=== PATIENT | female | born 1960 | race Caucasian/White ===

== ENCOUNTER → 2021-10-20 | Outpatient (CLI) | payer OTHER, MEDICARE, SELFPAY ==
--- NOTE | 2021-10-20 07:59 | CT_ITS ---
INDICATION: RT CN PALSY/R/O OOT MASS EXAMINATION: CT BRAIN WITH AND WITHOUT CONTRAST - CT Head or Brain WO/W Contrast Injection TECHNIQUE: Multiple axial images were obtained of the brain with and without IV contrast. A radiation dose optimization technique was used for this scan. IV Contrast dosage and agent: 50 cc of ISOVUE-300 COMPARISON : None. Radiation DLP : 1978.5. Radiation CTDvol: 39.78. FINDINGS: BRAIN PARENCHYMA: No intra- or extra-axial hemorrhage. No evidence of acute infarct. No intracranial mass or mass effect. There is preservation of the vega/white matter interface. Posterior fossa structures are unremarkable. No abnormal contrast enhancement. CSF SPACES: Appropriate for age. No hydrocephalus. Basal cisterns are patent. CALVARIUM, SKULL BASE, PARANASAL SINUSES AND MASTOID AIR CELLS: Clear. No discrete lytic or blastic abnormalities. ORBITS: Both globes, extraocular muscles, optic nerves and retrobulbar fat appear unremarkable. ASPECTS Score for Acute Strokes: 10 CT/Brain/Head W/WO Contrast IMPRESSION: Negative CT Brain with and without contrast. Electronically Signed: Nakul Causey MD at 8:41 EDT Reading Location ID and State: [facility] / [place] Tel , Service support ,
--- NOTE | 2021-10-20 07:59 | CT_ITS ---
EXAM: CT Orbits With Intravenous Contrast CLINICAL INDICATION: 61 years old, Female; RT CN PALSY/R/O OOT MASS TECHNIQUE: Helically acquired images were obtained of the orbits. Multiplanar reformations were reviewed. Study was performed with intravenous contrast. This CT exam was performed using one or more of the following dose reduction techniques: automated exposure control, adjustment of the mA and/or kV according to patient size, and/or use of iterative reconstruction technique. This report was created using [employer] report [employer] technology. CONTRAST: 50 CC ISOVUE 300 RADIATION DOSE: CTDIvol = 39.78 mGy, DLP = 1978.52 mGy-cm COMPARISON: Head CT dated 10/20/2021. FINDINGS: Orbits: Postop changes left globe. Extraocular muscles are normal. Retrobulbar fat appears unremarkable. Sinuses: Unremarkable. Clear. Bones/joints: No acute fracture. Soft tissues: Unremarkable. No focal subcutaneous swelling. No discrete fluid collections. CT/Orb Sella Post Fossa Ear W/CON IMPRESSION: No acute findings in the orbits. Electronically Signed: Jossue Zeng MD at 5:36 EDT ,
[2021-10-20 08:10] LABS: CREATININE FINGERSTICK 0.6 mg/dL (0.55-1.02); EGFR FINGERSTICK > 60.0000 mL/min (>60)
== END | disposition home or self-care (01) ==
LOC: CT 07:54
PROVIDERS: Referring Provider Ophthalmology; Visit Provider Ophthalmology
DX: Z01.812 Encounter for preprocedural laboratory examination (principal); H49.21 Sixth [abducent] nerve palsy, right eye
CPT/HCPCS: 70470; 70481; Q9967

== ENCOUNTER → 2023-05-20 | Outpatient (CLI) | payer MEDICARE, SELFPAY ==
[2023-05-20 12:39] LABS: Microalbumin,Random Urine 38.7 mg/L (NO RANGE EST.); Microalbumin:Creatinine Ratio 20.5 mg/g CRE (<30 mg/g CRE)
[2023-05-20 12:53] LABS: ALB/GLOB Ratio 0.9 RATIO (0.9-2.4); AST(SGOT) 15 U/L (15-37); Alanine Aminotransfer ALT/SGPT 27 U/L (13-56); Albumin, Serum 3.7 g/dL (3.2-5.0); Alkaline Phosphatase 89 U/L (45-117); Anion Gap 5 (5-15); BUN 10 mg/dL (7-18); BUN/Creat Ratio 13.3 RATIO (10-20); Calcium,Total 8.8 mg/dL (8.5-10.1); Chloride 103 mmol/L (98-107); Cholesterol 123 mg/dL (200); Creatinine, Serum 0.75 mg/dL (0.55-1.02); EST Glomerular Filtration Rate 83 mL/min (>60); Est Glom Filt Rate - Afr Amer 100 mL/min (>60); Globulin 4.2 g/dL (2.2-4.2); Glucose 301 mg/dL (74-106); High Density Lipoprotein 48 mg/dL; Potassium 4.1 mmol/L (3.5-5.1); Protein, Total 7.9 g/dL (6.4-8.2); Sodium Level 138 mmol/L (136-145); Thyroid Stim Hormone (TSH) 1.11 uIU/mL (0.358-3.74); Triglycerides 106 mg/dL; Very Low Density Lipoprotein 21 mg/dL (5-40)
== END | disposition home or self-care (01) ==
LOC: LAB 11:48
PROVIDERS: PCP Nurse Practitioner Family; Referring Provider Nurse Practitioner Family; Visit Provider Nurse Practitioner Family
DX: E66.09 Other obesity due to excess calories (principal); E11.9 Type 2 diabetes mellitus without complications; Z68.33 Body mass index [BMI] 33.0-33.9, adult; I10 Essential (primary) hypertension
CPT/HCPCS: 36415; 80053; 80061; 82043; 82570; 84443

== ENCOUNTER 2025-04-29 15:30 | Outpatient (RCR) | payer MEDICARE, SELFPAY ==
--- NOTE | 2025-03-08 09:48 | HP.OTEVAL_ITS ---
Patient's Visit Information Visit Information Visit Information: KATY CASTILLO is a 64 year old F, referred to Occupational Therapy by Dr. Eddi Mason MD, with a diagnosis of left ulna fx. Date of Evaluation: 03/08/25 Occupational Therapist: Maeve Smith, GUIDOR/Ines, CHT Subjective Subjective: This 64 year old female was seen for OT eval with dx of a left ulna fx. pt states she had a fall on December 17 2024. Pt states she went to the ER. Pt states they splinted her wrist and sent her to Dr. Mason at [facility]. Pt states she was not casted and kept her the splint for 6 weeks. pt states she was told she could get out of that and was given a left wrist cock- up brace about 6 weeks ago. pt states she saw him about a week ago and she was told she needed therapy. pt states her wrist is not good- pt states she is in a wrist brace when her grandchildren are around. pt is right handed pt states she has increase difficulty with all ADLS and IADLs. pt feels pain- weakness and limited ROM stops her from doing what she wants to do. Pain left wrist: Current Pain Intensity: 5 Pain Intensity Range: 7 and 8 ROM Forearm: right WNL left supination is at N Wrist: right 65/65 left 30/15 with pain Strength Microsoft Crm Developer: right 55# left 15# Lateral Pinch: right 12# left unable Tripod Pinch: right 8# left unable Sensation Sensation Comments: denies Quick DASH-Disab of Arm,Shoulder& Hand Quick DASH Score: 55.0000 Goals Goal:ROM equal to unaffected hand: Yes Comment: ROM to 70% of unaffected wrist/forearm Goal:Microsoft Crm Developer/Pinch strength at least 75% of unaffected hand: Yes Goal:No pain with affected hand use: Yes Goal:Full use of affected hand in daily activities including work: Yes Rehabilitation General Assessment: pt arrives 11 weeks from DOI. 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 with ADls and IADls. Pt would benefit from skilled OT services 2x week for 8 weeks to return to her PLOF. Today therapist ed. pt on HEP of AAROM/AROM and light use with daily tasks. Pt demo understanding and agrees to POC. Rehabilitation Potential: Good Anticipated Interventions Anticipated Interventions: A/AAROM/PROM, Strengthening, Modalities, Joint Protection/Energy Conservation, Ergonomic Education, Education re assistive Equipment and Education re Diagnosis Visit Plan Frequency: 2x /Week Duration: 6 Weeks TEXT: Thank you for the opportunity to evaluate your patient. For Medicare and Medicare HMO plans, please review the plan of care and approve it. It will need to be FAXED BACK to us at [phone] for Medicare purposes. Please let me know if there are questions or concerns regarding this plan of care. Physician Signature: Date:
--- NOTE | 2025-04-29 15:49 | HP.OTDCSUM ---
Discharge Summary D/C Summary: It has been my pleasure to treat KATY CASTILLO under orders from Dr. Eddi Mason MD, for the diagnosis of left ulna fx for a total of 7 visit(s). Please see the following information for a summary of their discharge status. Overall Improvement % Improvement: 50 Objective Objective/Function: pt demo with a left test design engineer strength 15# right is 75# left lateral pinch unable right 12# left tripod pinch unable 8# left wrist ROM 40/35 left forearm supination 45* pt continues to demo with limited ROM, strength following her left wrist fx. Pt would benefit from further skilled OT services but due to insurance limitation pt is d/c with HEP/. Goals Patient Goals: Decrease Pain, Use Hand/Wrist/Arm Normally Again and Be More Independent in ADLS Goal:ROM equal to unaffected hand: Yes Goal:Financial Report Service Sales Agent/Pinch strength at least 75% of unaffected hand: Yes Goal:No pain with affected hand use: Yes Goal:Full use of affected hand in daily activities including work: Yes Plan Plan: D/C with HEP D/C Information Discharge Comments: pt continues to struggle with her return of strength of left UE following her fx. pt would benefit from further therapy services but due to insurance limits she is d/c with HEP d/c sentence: If there are questions or concerns regarding this patient's occupational therapy, please fell free to call me at [phone]. Thank you for the referral of this patient. Sincerely, Maeve Smith, OTR/L, CHT
== END 2025-04-29 19:00 | disposition home or self-care (01) ==
LOC: OT 15:30
PROVIDERS: PCP Nurse Practitioner Family; Referring Provider Orthopaedic Surgery; Visit Provider Orthopaedic Surgery
DX: S52.532D Colles' fracture of left radius, subsequent encounter for closed fracture with routine healing (principal); S52.615D Nondisplaced fracture of left ulna styloid process, subsequent encounter for closed fracture with routine healing
CPT/HCPCS: 97110; 97140; 97166; 97530